=== PATIENT | male | born 1995 | race Caucasian/White ===

== ENCOUNTER 2016-06-24 21:38 | Emergency (ER) | payer SELFPAY ==
[2016-10-22] MEDS ORDERED: NORCO1 TA1 PO (12:02)
[2016-10-22] MEDS ORDERED: ZYVOXPO PO (12:03)
== END 2016-06-24 21:50 | disposition home or self-care (01) ==
LOC: ER 21:38
DX: K13.0 Diseases of lips (principal); F17.200 Nicotine dependence, unspecified, uncomplicated; Z91.040 Latex allergy status
CPT/HCPCS: 73630-LT; 99284